=== PATIENT | female | born 1945 | race Caucasian/White ===

== ENCOUNTER → 2021-08-02 | Outpatient (CLI) | payer MEDICARE | LOC: CARD 10:21 | PROVIDERS: ATTEND Nurse Practitioner Adult Health | DX: R42 Dizziness and giddiness (principal) | CPT/HCPCS: 93880 ==

== ENCOUNTER → 2022-05-04 | Day surgery (SDC) | payer MEDICARE ==
[~2022-05-04] MED LIST: AMLODIPINE BESYL5 MG PO; ASPIRIN81 MG PO; FENTANYL CITRATE/PF 100MCG/2 ML INJ ONE; GLUCAGON FOR INJ 1 MG VIAL ONE; HYOSCYAMINE SULFATE 0.5 MG/ML INJ ONE; LISINOPRIL10 MG PO; METOCLOPRAMIDE HCL 10 MG/2ML VIAL ONE; PRAVASTATIN SOD40 MG PO; PROPOFOL IV EMULSION 50 ML IV ONE
[2022-05-04 14:05] VITALS: BP 112/70
== END | disposition home or self-care (01) ==
LOC: OR 09:49
PROVIDERS: ATTEND Internal Medicine Gastroenterology
DX: K29.50 Unspecified chronic gastritis without bleeding (principal); D12.2 Benign neoplasm of ascending colon; K62.1 Rectal polyp; K22.70 Barrett's esophagus without dysplasia; K20.90 Esophagitis, unspecified without bleeding; R63.4 Abnormal weight loss; K57.30 Diverticulosis of large intestine without perforation or abscess without bleeding; K64.8 Other hemorrhoids; E78.5 Hyperlipidemia, unspecified; I10 Essential (primary) hypertension; F41.9 Anxiety disorder, unspecified; Z01.810 Encounter for preprocedural cardiovascular examination; Z79.82 Long term (current) use of aspirin; Z79.899 Other long term (current) drug therapy
CPT/HCPCS: 43239; 45380; 45384; 88305; 88342; 93005; C9113; J1610; J1980; J2704; J2765; J3010; 45378; 45385

== ENCOUNTER → 2023-01-17 | Outpatient (REF) | payer MEDICARE ==
[~2023-01-17] MED LIST changes: -FENTANYL CITRATE/PF 100MCG/2 ML INJ ONE; -GLUCAGON FOR INJ 1 MG VIAL ONE; -HYOSCYAMINE SULFATE 0.5 MG/ML INJ ONE; -METOCLOPRAMIDE HCL 10 MG/2ML VIAL ONE; -PROPOFOL IV EMULSION 50 ML IV ONE
== END ==
LOC: RAD 08:19
PROVIDERS: ATTEND Internal Medicine
DX: R07.89 Other chest pain (principal); R07.81 Pleurodynia
CPT/HCPCS: 71046; 71111

== ENCOUNTER 2024-08-01 09:26 | Emergency (ER) | payer MEDICARE ==
[~2024-08-01] VITALS: Ht 165.1 cm; Wt 49.9 kg
[2024-08-01 09:30] VITALS: PULSE 70; RESP 16; TEMP 97.8; O2SAT 98
[2024-08-01] MEDS: ACETAMINOPHEN 325 MG TAB PO ONE (11:07)
== END 2024-08-01 14:14 | disposition home or self-care (01) ==
LOC: ER 09:41
DX: M25.512 Pain in left shoulder (principal); S09.90XA Unspecified injury of head, initial encounter; W06.XXXA Fall from bed, initial encounter; Y93.84 Activity, sleeping; Y92.89 Other specified places as the place of occurrence of the external cause; F03.90 Unspecified dementia, unspecified severity, without behavioral disturbance, psychotic disturbance, mood disturbance, and anxiety; I10 Essential (primary) hypertension; E78.5 Hyperlipidemia, unspecified
CPT/HCPCS: 70450; 72125; 72170; 99284